=== PATIENT | male | born 1950 | race Caucasian/White ===

== ENCOUNTER 2020-07-03 22:07 | Outpatient (CLI) | payer MEDICARE | END 2020-07-03 22:08 | disposition critical access hospital (66) | LOC: EMS 22:07 | DX: R06.09 Other forms of dyspnea (principal); R42 Dizziness and giddiness; R51.9 Headache, unspecified | CPT/HCPCS: A0425; A0429 ==

== ENCOUNTER 2020-07-03 22:40 | Emergency (ER) | payer MEDICARE ==
[2020-07-03 22:59] LABS: BASOPHILS % (AUTO) 0.3 %; EOSINOPHILS # (AUTO) 0.3 10^3/uL (0.0-0.7); EOSINOPHILS % (AUTO) 3.6 %; LYMPHOCYTES % (AUTO) 28.1 %; MEAN CORPUSCULAR HEMOGLOBIN 30.7 pg (27.0-31.0); MEAN CORPUSCULAR HGB CONC 30.5 g/dL (32.0-36.0); MEAN CORPUSCULAR VOLUME 100.7 fL (80.0-94.0); MEAN PLATELET VOLUME 9.3 fL (7.4-11.4); MONOCYTES # (AUTO) 0.6 10^3/uL (0.0-1.0); MONOCYTES % (AUTO) 7.9 %; NEUTROPHILS # (AUTO) 4.2 10^3/uL (1.5-6.6); NEUTROPHILS % (AUTO) 59.7 %; PLT - PLATELET COUNT 126 10^3/uL (130-450); RED CELL DISTRIBUTION WIDTH 16.2 % (12.0-15.0)
[2020-07-03 23:06] LABS: HGB - HEMOGLOBIN 4.3 g/dL (14.0-18.0)
[2020-07-03 23:07] LABS: HCT - HEMATOCRIT 14.1 % (42.0-52.0)
[2020-07-03 23:12] LABS: ALBUMIN 3.1 g/dL (3.2-5.5); BILIRUBIN,TOTAL 0.8 mg/dL (0.2-1.0); CALCIUM 8.2 mg/dL (8.5-10.3); CREATININE 1.8 mg/dL (0.6-1.2); POTASSIUM 3.1 mmol/L (3.5-5.0); TOTAL PROTEIN 6.1 g/dL (6.7-8.2)
--- NOTE | 2020-07-03 23:14 | ED Physician Documentation ---
History of Present Illness - Stated complaint Stated Complaint: ABNORMAL LAB - Chief complaint Chief Complaint: General - History obtained from History obtained from: Patient, Family (spouse), EMS - History of Present Illness Timing: How many days ago (4-5 days) Pain level max: 0 Pain level now: 0 Improved by: rest Worsened by: standing, ambulation Associated symptoms: lightheaded, dyspneic - Additonal information Additional information: patient has had approximately 5 days of gradually worsening dyspnea on exertion, generalized weakness, lightheadedness when standing and ambulating. His general administrator ordered blood tests earlier today and patient was contacted [facility] with critical h/h, advised to call 911 to come to nearest hospital. He has h/o anemia requiring transfusions although previous w/u has not revealed etiology; this has included upper and lower endoscopies (approximately 6 months ago). He has not noticed blood in his stool nor dark black/tarry stool. He has cirrhosis and had TIPS procedure approximately 8 months ago. He is not aware of having varices. Review of Systems Constitutional: reports: Fatigue. denies: Fever, Chills, Sweats Eyes: reports: Reviewed and negative Ears: reports: Reviewed and negative Nose: reports: Reviewed and negative Throat: reports: Reviewed and negative Cardiac: reports: Reviewed and negative Respiratory: reports: Dyspnea. denies: Cough GI: reports: Abdominal Swelling (chronic). denies: Abdominal Pain, Nausea, Vomiting, Constipation, Diarrhea, Hematemesis, Bloody / black stool : denies: Dysuria, Frequency Skin: reports: Reviewed and negative Musculoskeletal: reports: Reviewed and negative Neurologic: reports: Generalized weakness. denies: Focal weakness, Numbness, Headache PD PAST MEDICAL HISTORY - Past Medical History Past Medical History: Yes Endocrine/Autoimmune: HyPOthyroidism GI: Cirrhosis : Renal insuffiency - Past Surgical History General: Other (TIPS) - Present Medications Home Medications: Ambulatory Orders Medication Instructions Recorded Confirmed Allopurinol [Zyloprim] 150 mg PO DAILY 07/03/20 07/03/20 Furosemide [Lasix] 40 mg PO BID 07/03/20 07/03/20 Levothyroxine Sodium 0.137 mcg PO DAILY 07/03/20 07/03/20 [Levothyroxine] Metoprolol Tartrate [Lopressor] 50 mg PO DAILY 07/03/20 07/03/20 Ondansetron Odt [Zofran Odt] 4 mg PO Q6HR 07/03/20 07/03/20 Pantoprazole [Protonix] 40 mg PO DAILY 07/03/20 07/03/20 Rifaximin [Xifaxan] 400 mg PO DAILY PM 07/03/20 07/03/20 Rifaximin [Xifaxan] 600 mg PO DAILY 07/03/20 07/03/20 Sertraline [Zoloft] 25 mg PO DAILY 07/03/20 07/03/20 Spironolactone [Aldactone] 25 mg PO DAILY 07/03/20 07/03/20 - Allergies Allergies/Adverse Reactions: Allergies Allergy/AdvReac Type Severity Reaction Status Date / Time No Known Drug Allergies Allergy Verified 07/03/20 22:44 - Living Situation Living Situation: reports: With spouse/s.o. Living Arrangement: reports: At home PD ED PE NORMAL - Vitals Vital signs reviewed: Yes - General General: Alert and oriented X 3, No acute distress, Well developed/nourished - HEENT HEENT: Moist mucous membranes - Neck Neck: Supple, no meningeal sign - Cardiac Cardiac: RRR, No murmur - Respiratory Respiratory: No respiratory distress, Clear bilaterally - Abdomen Abdomen: Soft, Non tender - Neuro Neuro: Alert and oriented X 3 Eye Opening: Spontaneous Motor: Obeys Commands Verbal: Oriented GCS Score: 15 - Psych Psych: Normal mood, Normal affect PD ED PE EXPANDED - Abdomen Abdomen: Distended, Other (umbilical hernia that is soft, nontender). No: Tender to palpation - Rectal Rectal: Heme Occult Pos - QC + (per lab result), Other (brown stool (not grossly bloody nor black/tarry)). No: Hemorrhoid - Derm Derm: Pale - Extremities Extremities: Pedal edema bilateral Results - Vitals Vitals: Vital Signs - 24 hr 07/03/20 07/04/20 07/04/20 22:41 00:05 00:46 Temperature 37.3 C 36.9 C Heart Rate 103 H 96 83 Respiratory 17 16 14 Rate Blood Pressure 133/55 H 134/57 H 134/52 H O2 Saturation 100 100 07/04/20 07/04/20 07/04/20 00:53 01:00 02:00 Temperature 36.8 C 36.8 C Heart Rate 89 79 76 Respiratory 14 16 16 Rate Blood Pressure 122/49 L 109/53 L 117/51 L O2 Saturation 97 07/04/20 07/04/20 07/04/20 02:32 02:45 02:52 Temperature 37.2 C 37.2 C 37.0 C Heart Rate 77 79 94 Respiratory 12 23 16 Rate Blood Pressure 95/43 L 95/43 L 114/55 L O2 Saturation 07/04/20 07/04/20 07/04/20 03:00 03:33 04:01 Temperature 37 C Heart Rate 78 80 78 Respiratory 12 16 15 Rate Blood Pressure 124/50 L 131/66 H 103/46 L O2 Saturation 95 98 07/04/20 07/04/20 07/04/20 05:26 06:24 06:32 Temperature 37.1 C 37.0 C Heart Rate 73 73 74 Respiratory 15 20 14 Rate Blood Pressure 123/64 110/52 L 103/52 L O2 Saturation 94 07/04/20 07/04/20 06:34 06:47 Temperature 36.8 C Heart Rate 72 Respiratory 14 13 Rate Blood Pressure 116/62 O2 Saturation Oxygen O2 Source Room air - EKG (time done) No standard instances Rate: Rate (enter#) (95) Rhythm: Other (accelerated junctional) [place]: Normal Intervals: Prolonged QT QRS: Normal Ischemia: Normal ST segments - Labs Labs: Microbiology 07/04/20 00:30 Occult Blood - Final Stool Laboratory Tests 07/03/20 07/03/20 07/03/20 22:52 22:52 22:52 WBC 7.0 RBC 1.40 L Hgb 4.3 L* Hct 14.1 L* MCV 100.7 H MCH 30.7 MCHC 30.5 L RDW 16.2 H Plt Count 126 L MPV 9.3 Neut # (Auto) 4.2 Lymph # (Auto) 2.0 Tripp # (Auto) 0.6 Eos # (Auto) 0.3 Baso # (Auto) 0.0 Absolute Nucleated RBC 0.00 Nucleated RBC % 0.0 Sodium 138 Potassium 3.1 L Chloride 106 Carbon Dioxide 23 Anion Gap 9.0 BUN 40 H Creatinine 1.8 H Estimated GFR (MDRD) 38 L Glucose 136 H Calcium 8.2 L Total Bilirubin 0.8 AST 18 ALT 10 Alkaline Phosphatase 94 Total Protein 6.1 L Albumin 3.1 L Globulin 3.0 Albumin/Globulin Ratio 1.0 Lipase 46 Nasal Adenovirus (PCR) Nasal B. parapertussis DNA (PCR) Nasal Coronavir 229E PCR Nasal Coronavir HKU1 PCR Nasal Coronavir NL63 PCR Nasal Coronavir OC43 PCR Nasal Enterovir/Rhinovir PCR Nasal Influenza B PCR Nasal Influenza A PCR Nasal Parainfluen 1 PCR Nasal Parainfluen 2 PCR Nasal Parainfluen 3 PCR Nasal Parainfluen 4 PCR Nasal RSV (PCR) Nasal B.pertussis DNA PCR Nasal C.pneumoniae (PCR) Garo Human Metapneumo PCR Nasal M.pneumoniae (PCR) Nasal SARS-CoV-2 (PCR) Blood Type O POSITIVE Blood Type Recheck Antibody Screen NEGATIVE Crossmatch IS Only See Detail 07/03/20 07/04/20 07/04/20 23:15 00:50 04:30 WBC RBC Hgb 5.3 L* Hct 16.6 L* MCV MCH MCHC RDW Plt Count MPV Neut # (Auto) Lymph # (Auto) Tripp # (Auto) Eos # (Auto) Baso # (Auto) Absolute Nucleated RBC Nucleated RBC % Sodium Potassium Chloride Carbon Dioxide Anion Gap BUN Creatinine Estimated GFR (MDRD) Glucose Calcium Total Bilirubin AST ALT Alkaline Phosphatase Total Protein Albumin Globulin Albumin/Globulin Ratio Lipase Nasal Adenovirus (PCR) NOT DETECTED Nasal B. parapertussis DNA (PCR) NOT DETECTED Nasal Coronavir 229E PCR NOT DETECTED Nasal Coronavir HKU1 PCR NOT DETECTED Nasal Coronavir NL63 PCR NOT DETECTED Nasal Coronavir OC43 PCR NOT DETECTED Nasal Enterovir/Rhinovir PCR NOT DETECTED Nasal Influenza B PCR NOT DETECTED Nasal Influenza A PCR NOT DETECTED Nasal Parainfluen 1 PCR NOT DETECTED Nasal Parainfluen 2 PCR NOT DETECTED Nasal Parainfluen 3 PCR NOT DETECTED Nasal Parainfluen 4 PCR NOT DETECTED Nasal RSV (PCR) NOT DETECTED Nasal B.pertussis DNA PCR NOT DETECTED Nasal C.pneumoniae (PCR) NOT DETECTED Garo Human Metapneumo PCR NOT DETECTED Nasal M.pneumoniae (PCR) NOT DETECTED Nasal SARS-CoV-2 (PCR) NOT DETECTED Blood Type Blood Type Recheck O POSITIVE Antibody Screen Crossmatch IS Only PD MEDICAL DECISION MAKING - ED course Complexity details: reviewed results, re-evaluated patient, considered differential, d/w patient, d/w family ED course: Multiple calls were made in attempting to disposition this patient. Initially [facility] contacted but they subsequently called back and spoke to the [facility] and say that where patient is to be transferred is at my discretion. I then spoke with GI residential subcontractor at [facility] [place] [facility] (Dr. Tavarez) and she recommends I recontact [facility]. I then asked [facility] to call Dr. Rosie Adams (patient's GI who ordered blood work yesterday), but this eventually resulted in a call from a GI fellow at [facility] who recommends I recontact [facility]. [facility] was called again and they informed my [facility] that there are no beds available at [facility] and that they are only aware of beds being available at [facility] and [facility]. I presented these options to patient and he requests time to consider these options; he says he strongly prefers transfer to [facility], as he has been treated inpatient at [facility] before. I had my SOCIAL WORK THERAPIST contact [facility] for the hospitalist, but I was subsequently told that [facility] transfer center says they have no beds available. However, I subsequently was contacted by Dr. Robert from [facility] and Dr. Robert accepts patient for transfer to [facility]. Dr. Robert recommends octreotide drip as well as protonix drip (the protonix drip had already been initiated; ocreotide drip started in [facility] ED after my conversation w/ Dr. Robert). On multiple reevaluations during ED stay, patient had stable vital signs and appeared less dyspneic as transfusions were undertaken Departure - Departure Disposition: 02 Transfer Acute Care Hosp Clinical Impression: Lower GI bleed Anemia Qualifiers: Anemia type: unspecified type Qualified Code(s): D64.9 - Anemia, unspecified Condition: Stable
[2020-07-04 01:49] LABS: B. PARAPERTUSSIS- RESP PCR PAN NOT DETECTED; B. PERTUSSIS- RESP PCR PANEL NOT DETECTED; C. PNEUMONIAE- RESP PCR PANEL NOT DETECTED; CORONAVIRUS 229E-RESP PCR NOT DETECTED; CORONAVIRUS HKU1-RESP PCR NOT DETECTED; CORONAVIRUS NL63-RESP PCR NOT DETECTED; CORONAVIRUS OC43-RESP PCR NOT DETECTED; HUMAN METAPNEUMOVIRUS NOT DETECTED; INFLUENZA A- RESP PCR PANEL NOT DETECTED; INFLUENZA B - RESP PCR PANEL NOT DETECTED; M. PNEUMONIAE- RESP PCR PANEL NOT DETECTED; PARAINFLUENZA VIRUS 1 NOT DETECTED; PARAINFLUENZA VIRUS 2 NOT DETECTED; PARAINFLUENZA VIRUS 3 NOT DETECTED; PARAINFLUENZA VIRUS 4 NOT DETECTED; RHINOVIRUS/ENTEROVIRUS NOT DETECTED; RSV- RESP PCR PANEL NOT DETECTED; SARS-CoV-2 -RESP PCR PANEL NOT DETECTED
[2020-07-04] MEDS ORDERED: PANTOPRAZOLE 80 MG in SODIUM CHLORIDE 0.9% 100ML 100 ML IV STA (03:33)
[2020-07-04] MEDS ORDERED: PANTOPRAZOLE 40 MG VIAL ONE (03:36)
[2020-07-04] MEDS ORDERED: OCTREOTIDE 500 MCG in SODIUM CHLORIDE 0.9% 100ML 95 ML IV STA (04:20)
[2020-07-04] MEDS ORDERED: OCTREOTIDE 100 MCG/ML VIAL ONE (04:27)
[2020-07-04 04:40] LABS: HCT - HEMATOCRIT 16.6 % (42.0-52.0); HGB - HEMOGLOBIN 5.3 g/dL (14.0-18.0)
[2020-07-04 06:48] VITALS: BP 116/62
== END 2020-07-04 09:13 | disposition short-term general hospital (02) ==
LOC: EDBD → ED 22:40
DX: K92.1 Melena (principal); D64.9 Anemia, unspecified; Z20.822 Contact with and (suspected) exposure to COVID-19; I45.81 Long QT syndrome; I49.8 Other specified cardiac arrhythmias; K42.9 Umbilical hernia without obstruction or gangrene; K74.60 Unspecified cirrhosis of liver
CPT/HCPCS: 36415; 36430; 80053; 82272; 83690; 85014; 85018; 85025; 86850; 86900; 86901; 86920; 87631; 93005; 96374; 96375; 99284; 99285; J2354; P9016; 0202U

== ENCOUNTER 2020-07-04 09:03 | Outpatient (CLI) | payer MEDICARE | END 2020-07-04 09:04 | disposition short-term general hospital (02) | LOC: EMS 09:03 | PROVIDERS: ATTEND Emergency Medicine | DX: K92.2 Gastrointestinal hemorrhage, unspecified (principal); D64.9 Anemia, unspecified | CPT/HCPCS: A0425; A0428 ==